=== PATIENT | male | born 2000 | race Caucasian/White ===

== ENCOUNTER 2021-02-25 13:16 | Emergency (ER) | payer OTHER ==
[2021-02-25] MEDS ORDERED: Bupivacaine 0.5% 10 ML VIAL ONE (15:02)
[2021-02-25] MEDS ORDERED: Lidocaine 1% PF 5 ML VIAL ONE (15:02)
[2021-02-25] MEDS ORDERED: Boostrix 0.5 ML (Tdap) VIAL ONE (15:03)
== END 2021-02-25 16:54 | disposition home or self-care (01) ==
LOC: ERS 13:16
DX: S61.217A Laceration without foreign body of left little finger without damage to nail, initial encounter (principal); Z23 Encounter for immunization; W27.0XXA Contact with workbench tool, initial encounter
CPT/HCPCS: 12002; 90471; 90715; J3490

== ENCOUNTER 2021-03-04 17:17 | Emergency (ER) | END 2021-03-04 17:45 | disposition home or self-care (01) | LOC: ERS 17:17 | DX: S61.011D Laceration without foreign body of right thumb without damage to nail, subsequent encounter (principal) ==